=== PATIENT | female | born 1970 | race Caucasian/White ===

== ENCOUNTER 2017-01-13 15:09 | Emergency (ER) | payer OTHER ==
[~2017-01-13] VITALS: Ht 165.1 cm; Wt 114.0 kg
[~2017-01-13 15:09] MED LIST: IBUP-1542 PO; TRAM-40 PO
[2017-01-13 15:25] VITALS: Ht 165.1 cm; Wt 114.0 kg
[2017-01-13] MEDS ORDERED: SOD CHLORIDE 0.9% 1,000 ML IV STA (16:18)
[2017-01-13] MEDS ORDERED: METOCLOPRAMIDE 10 MG INJ IV STA (16:18)
[2017-01-13] MEDS ORDERED: DIPHENHYDRAMINE 50 MG INJ IV STA (16:18)
[2017-01-13] MEDS ORDERED: KETOROLAC 30 MG INJ IV STA (16:18)
--- NOTE | 2017-01-13 16:18 | ERD ---
ER Documentation Chief Complaint Date/Time DATE: 01/13/17 TIME: 16:15 Chief Complaint headache and dizziness x 1 month HPI This pleasant 46-year-old female presents to emergency department reporting a headache x 4 weeks, intermitted usually controlled with Excedrin patient states that she took Excedrin with little relief of headache., This headache has been present since yesterday. pain described as throbbing pressure, 8/10 on pain scale. pt call PMD told to come to emergency department PMH HTN on medication , pt takes intermittently. Patient denies that this is the worst headache that she has ever experienced, pain is 8/10 on pain scale. She is unsure of the exact time original headache started. She denies any injury, loss of consciousness, reports photosensitivity and nausea denies vomiting, or change in behavior, denies change in vision. ROS All systems reviewed and are negative except as per history of present illness. Medications Home Meds Active Scripts Ibuprofen* (Motrin*) 800 Mg Tab, 800 MG PO Q6, #16 TAB Prov:GAURAV COBIAN 01/13/17 Tramadol Hcl* (Ultram*) 50 Mg Tablet, 50 MG PO Q6H Y for PAIN, #14 TAB Prov:SAMARIA MENJIVAR MD 02/02/16 Ibuprofen* (Motrin*) 600 Mg Tab, 600 MG PO Q6, #20 TAB Prov:SAMARIA MENJIVAR MD 02/02/16 Allergies Allergies: Coded Allergies: No Known Allergy (Unverified , 08/05/14) PMhx/Soc History of Surgery: No Anesthesia Reaction: No Hx Neurological Disorder: No Hx Respiratory Disorders: No Hx Cardiac Disorders: No Hx Psychiatric Problems: No Hx Miscellaneous Medical Probl: No Hx Alcohol Use: No Hx Substance Use: No Hx Tobacco Use: No Smoking Status: Current every day smoker Physical Exam Vitals Vitals stable, triage notes reviewed Physical Exam Const: Well-nourished, well-hydrated, well-appearing, no acute distress Head: Atraumatic Eyes: Normal Conjunctiva PERRLA, EOMI, no nystagmus ENT: Normal External Ears, Nose and Mouth. Mucous membranes Neck: Full range of motion..~ No meningismus. Resp: Respirations even and unlabored no respiratory distress Cardio: Abd: Skin: No petechiae or rashes Back: Ext: Neur: Awake and alert Psych: Normal Mood and Affect Results 24 hrs Current Medications Medications (Trade) Dose Ordered Sig/Mayra Route PRN Reason Start Time Stop Time Status Last Admin Dose Admin Sodium Chloride (NS) 1,000 ml @ 1,000 mls/hr Q1H STAT IV 01/13/17 16:18 01/13/17 17:17 DC 01/13/17 16:54 Metoclopramide HCl (Reglan) 10 mg ONCE STAT IV 01/13/17 16:18 01/13/17 16:22 DC 01/13/17 16:54 Ketorolac Tromethamine (Toradol) 15 mg ONCE STAT IV 01/13/17 16:18 01/13/17 16:22 DC 01/13/17 16:54 Diphenhydramine HCl (Benadryl) 25 mg ONCE STAT IV 01/13/17 16:18 01/13/17 16:22 DC 01/13/17 16:53 Procedures/MDM This 46-year-old female presents to emergency department for treatment of chronic headache, headache has been intermittent 4 weeks, constant for the last 24 hours not responding to usual treatment of Excedrin. Patient is neurologically intact I have little suspicion for intracranial bleed, subdural hematoma, meningitis or CVA. Headache related to hypertension was considered, patient blood pressure is 145 systolically. I am unaware of patient's baseline. Patient states she did not take her medication today. patient treated in emergency department with 1 L of normal saline, IV Toradol, IV Reglan , IV Benadryl, patient reassessed after 90 minutes with improvement of headache. Blood pressure recheck documents; Patient will be discharged home with 800 mg ibuprofen, instructed to follow-up with primary care physician for full evaluation of headache symptoms, keep a headache journal, return to emergency department for change in behavior, change in vision, or headache not responding to treatment. I feel the patient is stable for discharge at this time with outpatient management by primary care physician. I have discussed results, examination findings, the treatment plan with the patient and family present prior to discharge. Indications for emergent reevaluation, side effects of medication were also discussed. All questions were answered. Patient verbalizes understanding and agrees with plan of care. Departure Diagnosis: Primary Impression: Headache Headache type: unspecified Headache chronicity pattern: chronic headache Intractability: not intractable Qualified Code: R51 - Chronic nonintractable headache, unspecified headache type Condition: Good Patient Instructions: Self-Care for Headaches Additional Instructions: Thank you for for coming to [facility] for your care today. Please ask your nurse or provider if you have questions about your care today and do not leave until all your questions have been answered. Please use any medications given as directed and follow-up with your doctor (or the doctor you were referred to) in the next 2-3 days. If you do not have a primary care doctor you may follow up at the [facility] (listed below). You may also use motrin and tylenol as needed for fever and/or pain unless instructed otherwise by your provider or nurse. Indications for more urgent follow-up have been discussed, but you may return to the Emergency Department at ANY time for any worrisome or worsening symptoms. If you have abdominal pain, please know that no test or exam you received is perfect and you should follow up within 8 hours for continued pain. If you had any imaging studies today, such as an X-Ray or CT Scan, these studies will be reviewed later by a radiologist. You will be called if there are important findings that were not identified today, so make sure the contact information you provided at registration is correct. If you received any narcotic pain control medicine today, such as Vicodin, Morphine or Dilaudid, your coordination and judgment may be affected for a number of hours. Please do not drive or operate heavy machinery, and you may want someone to assist you at home. If you were given a prescription for narcotic medication, be aware that it is very addictive- use sparingly and only if necessary. GAURAV COBIAN Jan 13, 2017 16:18 number of hours. Please do not drive or operate heavy machinery, and you may want someone to assist you at home. If you were given a prescription for narcotic medication, be aware that it is very addictive- use sparingly and only if necessary. GAURAV COBIAN Jan 13, 2017 16:18
[2017-01-13] MEDS ORDERED: IBUP800T25 PO (17:00)
[2017-01-13 17:43] VITALS: BP 134/74; PULSE 67; RESP 22; TEMP 98.1
== END 2017-01-13 17:44 | disposition home or self-care (01) ==
LOC: FTE 15:09
DX: R51 Headache (principal); F17.210 Nicotine dependence, cigarettes, uncomplicated; I10 Essential (primary) hypertension
CPT/HCPCS: 36415; 96374; 96375; J1200; J1885; J2765; J7030; Z7502

== ENCOUNTER 2017-07-27 20:36 | Emergency (ER) | END 2017-07-28 00:39 | disposition home or self-care (01) ==

== ENCOUNTER 2017-11-03 15:17 | Emergency (ER) | END 2017-11-03 19:24 | disposition home or self-care (01) ==

== ENCOUNTER 2017-12-11 21:16 | Emergency (ER) | END 2017-12-11 23:30 | disposition home or self-care (01) ==

== ENCOUNTER 2018-04-21 07:28 | Emergency (ER) | END 2018-04-21 10:45 | disposition home or self-care (01) ==